=== PATIENT | male | born 1985 | race Caucasian/White ===

== ENCOUNTER 2023-12-03 13:17 | Emergency (ER) | payer MEDICAID, SELFPAY ==
[2023-12-03 13:18] VITALS: BP 107/69; PULSE 96; RESP 18; TEMP 36.2; O2SAT 97; BMI 21.0
[2023-12-03] MEDS: Amox/Clavulanate 875 MG Tablet PO (14:02)
--- NOTE | 2023-12-03 14:10 | ED.VIS.LOWEX ---
HPI History of Present Illness Chief Complaint: Lower Extremity Injury Informant: patient Narrative Narrative: 3-day history nontraumatic knee swelling discomfort. Yesterday had some chills. He states 3 days ago bent down to pet his dog and felt discomfort. Noticed increasing redness. Denies history of similar. Denies diabetes denies any history of immunocompromise state. No history of similar. Allergy to penicillin causing bloody stools however has tolerated amoxicillin in the past. Prior similar symptoms: No PFSH PFSH Home Medications ?Medication ?Instructions ?Recorded ?Last Taken ?Type hydrocodone-acetaminophen 5-325mg 1 - 2 tab PO Q4H PRN PRN Pain ##20 06/04/14 Unknown Rx 5mg-325mg naproxen 500 mg tablet 500 mg PO BID #20 tabs 06/04/14 Unknown Rx ondansetron 4 mg disintegrating 4 mg PO Q8H PRN PRN Nausea #10 tabs 06/04/14 Unknown Rx tablet amoxicillin 875 mg-potassium 875 mg PO Q12H #20 TABLETS 12/03/23 Unknown Rx clavulanate 125 mg tablet Allergy/AdvReac Type Severity Reaction Status Date / Time Penicillins AdvReac Other Verified 12/03/23 13:18 Social History Smoking Status: Former smoker ROS ROS ED Constitutional Constitutional ED: Reports chills; Denies fever(s) or sweats Eyes Eyes: Denies change in vision ENT ENT ED: Denies dysphagia or sore throat Cardiovascular Cardiovascular: Denies chest pain, leg edema, palpitations or racing heartbeat Respiratory/Chest Respiratory/Chest: Denies cough, dyspnea or dyspnea on exertion Gastrointestinal Gastrointestinal: Denies abdominal pain, diarrhea, nausea or vomiting Genitourinary Genitourinary ED: Denies dysuria, hematuria or urinary frequency Musculoskeletal Musculoskeletal: Reports extremity pain; Denies back pain or neck pain Integumentary Denies rash or wounds Neurologic Neurologic: Denies headache(s), paresthesias or weakness EXAM Physical Exam Const Vital Signs: 12/03/23 13:18 12/03/23 14:28 Temperature 97.2 F L 97.2 F L Temperature Source Temporal Pulse Rate 96 72 Respiratory Rate 18 16 Blood Pressure 107/69 105/74 Blood Pressure Mean 81 84 Pulse Ox 97 96 Oxygen Delivery Method Room Air Positive well nourished and well developed General Appearance ED: well developed and NAD HEENT Reports moist mucous membranes normocephalic and atraumatic Eyes EOMs intact bilaterally and conjunctivae normal General Eye ED: Yes normal appearance of both eyes Neck no lymphadenopathy and supple General: Negative for tenderness Chest Wall Chest: Negative for tenderness Resp normal respiratory effort and normal air movement Effort and Inspection: symmetric chest movement; Negative for respiratory distress Cardio regular rate, regular rhythm and no murmurs Peripheral Pulses: pulses 2+ throughout GI normal to inspection, nondistended, normoactive bowel sounds and non-tender Palpation: Negative for guarding or rebound tenderness present Back/Spine no CVA tenderness and no thoracic nor lumbar tenderness Extremity Extremity Narrative: Right lower extremity: Palm-sized erythema prepatellar right over the kneecap. Tenderness infrapatellar. No induration. No drainage. Skin was intact. No pain with short arc motion. Knee extensor mechanism intact. No streaking. General Extremety ED: Yes edema and tenderness General Extremity: edema Neuro oriented x3 and no sensory deficits noted Sensorium / Orientation: awake and alert Skin no rashes or lesions noted and no wounds MDM MDM MDM Narrative Medical decision making narrative: Interventions / MDM: Differential diagnosis: Prepatellar bursitis Diagnosis considered but do not suspect: No clinical septic joint My EKG interpretation: N/A Imaging independently reviewed and interpreted by myself: N/A External documents reviewed: N/A Test considered but not ordered:N/A ED course: Vital stable nontoxic. Nondiabetic. No immunocompromise state. Exam concerns for prepatellar bursitis. He has no clinical septic joint pain or symptoms. This erythema was outlined. He started on Augmentin for coverage. He is given follow-up with orthopedic service with strict return precautions. All questions were answered. Re-evaluation: stable Disposition discussed with patient/family/significant other: Patient Case discussed with consulting clinician: N/A This note was generated with [employer] dictation software. It may contain incorrect words, spelling, and punctuation that were not noted in checking the note before signing. Discharge Plan Triage Chief Complaint: Lower Extremity Injury ED Provider: Walter Tong Dx/Rx/DC Orders Clinical Impression: Bursitis, prepatellar, right, Swollen R knee Instructions: Understanding Prepatellar Bursitis Prescriptions: New amoxicillin-pot clavulanate 875-125 mg tablet 875 mg PO Q12H Qty: 20 0RF No Action hydrocodone-acetaminophen 1 TABLET tablet 1 - 2 tab PO Q4H PRN PRN (Reason: Pain) Qty: 20 0RF ondansetron 4 MG tablet 4 mg PO Q8H PRN PRN (Reason: Nausea) Qty: 10 0RF naproxen 500 MG tablet 500 mg PO BID Qty: 20 0RF Primary Care Provider: Alexandria Casillas Referrals: Gildardo Balderas MD [Med Staff - Active Staff] - 1 Week if not improving Care Physician,No Primary [Non-Staff] - Activity Restrictions/Additional Instructions: Your exam consistent with prepatellar bursitis. Take you finish antibiotics prescribed. If you develop worsening symptoms redness goes up the legs high fevers, return to the ED for reevaluation. Print Language: Ukrainian Disposition Disposition: Home, Self Care Discharge Date/Time: 12/03/23 14:31
[2023-12-03 14:28] VITALS: BP 105/74; PULSE 72; RESP 16; TEMP 36.2; O2SAT 96
== END 2023-12-03 14:31 | disposition home or self-care (01) ==
PROVIDERS: Emergency Provider Emergency Medicine; PCP Nurse Practitioner Family; Visit Provider Emergency Medicine
DX: M70.41 Prepatellar bursitis, right knee (principal); Z87.891 Personal history of nicotine dependence
CPT/HCPCS: 99282